=== PATIENT | male | born 1990 | race Caucasian/White ===

== ENCOUNTER 2022-08-05 16:19 | Emergency (ER) | payer OTHER ==
[~2022-08-05] VITALS: Ht 188 cm; Wt 82.0 kg
[2022-08-05] MEDS ORDERED: BACITRACIN TOP OINT 1 UD PKG TOP ONE (19:00)
[2022-08-05] MEDS ORDERED: HYDROmorphone HCL 2 MG/ML VL/or syr IM ONE (19:15)
[2022-08-05] MEDS ORDERED: TETANUS-DIPTH-ACEL PERTUSSIS 0.5ML SYR Tdap IM ONE (19:15)
[2022-08-05] MEDS ORDERED: AMOXICILLIN/CLAVUL 875 MG TAB PO ONE (20:30)
[2022-08-05] MEDS ORDERED: TRAM50TA2 PO (20:47)
[2022-08-05] MEDS ORDERED: AMOX500T86 PO (20:47)
[2022-08-05 20:51] LABS: Basophils # (auto) 0 10 ^3/uL (0-0.2); Basophils % (auto) 0.5 % (0.0-2.0); Eosinophils # (auto) 0.3 10 ^3/uL (0-0.8); Eosinophils % (auto) 4.5 % (0.0-7.0); Hematocrit 41.4 % (41.0-53.0); Hemoglobin 14.5 g/dL (13.5-17.5); Lymphocytes # (auto) 1.5 10 ^3/uL (0.4-5.4); Lymphocytes % (auto) 20.6 % (10.0-50.0); Mean Corpuscular Volume 94.2 fL (80.0-100.0); Monocytes # (auto) 0.5 10 ^3/uL (0-1.3); Monocytes % (auto) 6.9 % (0.0-12.0); Neutrophils # (auto) 4.7 10 ^3/uL (1.6-8.6); Neutrophils % (auto) 67.5 % (37.0-80.0); Nucleated Red Blood Cells % 0.1 %; Red Blood Cells 4.39 10^6/uL (4.5-5.90)
[2022-08-05 20:54] LABS: Albumin 3.5 g/dL (3.4-5.0); Calcium 8.5 mg/dL (8.5-10.1); Potassium 3.4 mmol/L (3.5-5.1)
[2022-08-05 20:57] LABS: Bilirubin, Total 0.6 mg/dL (0.2-1.0); Total Protein 6.6 g/dL (6.4-8.2)
[2022-08-05 21:02] VITALS: BP 110/80
[2022-08-05] MEDS ORDERED: AMOXICILLIN/CLAVULAN 500 MG TAB PO ONE (21:45)
== END 2022-08-05 22:54 | disposition home or self-care (01) ==
LOC: ER 16:19
DX: S67.191A Crushing injury of left index finger, initial encounter (principal); S67.197A Crushing injury of left little finger, initial encounter; X58.XXXA Exposure to other specified factors, initial encounter; Y93.89 Activity, other specified; Y92.89 Other specified places as the place of occurrence of the external cause; Y99.8 Other external cause status
CPT/HCPCS: 36415; 73130; 80053; 85025; 90471; 90715; 93005; 96372; 99285; J1170